=== PATIENT | male | born 1975 | race Caucasian/White ===

== ENCOUNTER 2017-12-01 11:46 | Emergency (ER) | payer BC ==
[~2017-12-01] VITALS: Ht 175.3 cm; Wt 78.7 kg
[2017-12-01] MEDS ORDERED: ASPIRIN 81 MG TABLET CHEW PO ONE (12:30)
[2017-12-01] MEDS ORDERED: SODIUM CHLORIDE FLUSH 10ML SYR IVF ONE (12:30)
[2017-12-01 12:34] LABS: BASOPHILS # (AUTO) 0.03 x10^3/uL (0-0.1); BASOPHILS % (AUTO) 1 % (0-1); EOSINOPHILS # (AUTO) 0.01 x10^3/uL (0-0.4); EOSINOPHILS % (AUTO) 0 % (1-7); LYMPHOCYTES # (AUTO) 0.96 x10^3/uL (1-3.4); LYMPHOCYTES % (AUTO) 17 % (22-44); MD NO; MEAN CORPUSCULAR HGB CONC 33.8 g/dL (33.2-36.2); MEAN CORPUSCULAR VOLUME 94.7 fL (81-97); MEAN PLATELET VOLUME 6.9 fL (7.4-10.4); MONOCYTES # (AUTO) 0.44 x10^3/uL (0.2-0.8); MONOCYTES % (AUTO) 8 % (2-9); NEUTROPHILS % (AUTO) 74 % (42-75); PLATELET COUNT 378 x10^3/uL (130-400); RED BLOOD COUNT 5.23 x10^6/uL (4.38-5.82)
[2017-12-01] MEDS ORDERED: ASPIRIN 81 MG TABLET EC ONE (12:34)
[2017-12-01 12:44] LABS: ALBUMIN 3.9 g/dL (3.4-5.0); ANION GAP 10 mmol/L (5-15); CALCIUM 9.5 mg/dL (8.5-10.1); CHLORIDE 101 mmol/L (98-107); CREATININE 1.03 mg/dL (0.7-1.3)
[2017-12-01 12:49] LABS: TROPONIN I < 0.015 ng/mL (0.000-0.045)
[2017-12-01 13:11] VITALS: BP 168/101
[2017-12-01] MEDS ORDERED: LORazepam 1MG TABLET ONE (13:52)
[2017-12-01] MEDS ORDERED: PLEASE ENTER ALLERGIES MC SCH (14:00)
[2017-12-01] MEDS ORDERED: LORazepam 1MG TABLET PO ONE (14:00)
== END 2017-12-01 14:43 | disposition home or self-care (01) ==
LOC: ED 14:35
DX: R07.89 Other chest pain (principal); I10 Essential (primary) hypertension
CPT/HCPCS: 36415; 71045; 80048; 82040; 83880; 84484; 85025; 93005; 99285